=== PATIENT | male | born 1980 | race African-American/Black ===

== ENCOUNTER 2019-02-17 00:58 | Emergency (ER) | payer SELFPAY ==
[~2019-02-17] VITALS: Ht 167.6 cm; Wt 77.0 kg
[2019-02-17 01:25] VITALS: BP 134/89
[2019-02-17] MEDS ORDERED: SODIUM CHLORIDE 0.9% 1,000 ML IV ONE (01:42)
== END 2019-02-17 02:23 | disposition home or self-care (01) ==
LOC: ER 00:58
DX: F10.129 Alcohol abuse with intoxication, unspecified (principal); Y90.9 Presence of alcohol in blood, level not specified
CPT/HCPCS: 99283; J7030